=== PATIENT | male | born 1940 | race Caucasian/White ===

== ENCOUNTER 2021-12-07 17:01 | Emergency (ER) | payer OTHER ==
[~2021-12-07] VITALS: Ht 182.9 cm; Wt 93.4 kg
[~2021-12-07 17:01] MED LIST: AMLO-258 PO; BENA-8 PO; DOXA4TAB3 PO; ESOM20CA31 PO; FOLI1TAB15 PO; IRON1CAP32 PO; MAGN400T7 PO; VITAMIN B12 PO; VITAMIN D3 PO
[2021-12-07 17:02] VITALS: BP 151/75
[2021-12-07 17:56] LABS: HEMATOCRIT 25.9 % (42-54); LYMPHOCYTES % (AUTO) 71.6 % (21.0-51.0); MEAN CORPUSCULAR HEMOGLOBIN 27.2 pg (27.0-33.0); MEAN CORPUSCULAR HGB CONC 31.3 g/dL (32.0-36.0); MEAN CORPUSCULAR VOLUME 86.9 fL (79-99); MONOCYTES % (AUTO) 12.6 % (3.0-13.0); NEUTROPHILS % (AUTO) 15.8 % (40.0-77.0); PLATELET COUNT (AUTO) 14 K/uL (130-400); RED BLOOD CELL COUNT(AUTO) 2.98 MIL/uL (4.50-6.20); RED CELL DISTRIBUTION WIDTH 18.7 % (11.0-15.5); WHITE BLOOD COUNT (AUTO) 1.8 K/uL (4.8-10.8)
[2021-12-07 18:07] LABS: CREATININE 1.8 mg/dL (0.5-1.5); POTASSIUM 3.5 mmol/L (3.5-5.1)
[2021-12-07 18:14] LABS: BILIRUBIN,TOTAL 0.5 mg/dL (0.2-1.0); TOTAL PROTEIN, SERUM 7.3 g/dL (6.0-8.3)
[2021-12-07] MEDS ORDERED: ASPIRIN 325MG TAB PO ONE (18:30)
[2021-12-07] MEDS ORDERED: NITROGLYCERIN 1GM OINT 1 INCH/1GM TD ONE (18:30)
[2021-12-07 19:03] LABS: APPEARANCE,URINE Clear (CLEAR); BILIRUBIN,URINE Negative (NEGATIVE); COLOR,URINE Dark Yellow (YELLOW); GLUCOSE, URINE (UA) Negative (NEGATIVE); KETONES,URINE Trace mg/dL (NEGATIVE); LEUKOCYTE ESTERASE ,URINE Trace (NEGATIVE); NITRATE,URINE Negative (NEGATIVE); OCCULT BLOOD,URINE Negative (NEGATIVE); PROTEIN,URINE POS 1+ mg/dL (NEGATIVE)
[2021-12-07 19:26] LABS: BACTERIA,URINE Few /HPF (None Seen); RBC,URINE 0-1 /HPF (0-1); SQUAMOUS EPITHELIAL CELL,UR Few /HPF (0-2)
== END 2021-12-07 19:07 | disposition left against medical advice (07) ==
LOC: EDH 17:01
DX: R06.09 Other forms of dyspnea (principal); R77.8 Other specified abnormalities of plasma proteins; N28.9 Disorder of kidney and ureter, unspecified; I10 Essential (primary) hypertension; Z79.899 Other long term (current) drug therapy; Z98.890 Other specified postprocedural states
CPT/HCPCS: 36415; 71046; 80053; 81001; 83880; 84484; 85025; 93005

== ENCOUNTER 2023-11-04 21:31 | Observation (INO) | payer OTHER ==
[~2023-11-04] VITALS: Ht 175.3 cm; Wt 81.2 kg
[2023-11-04 22:13] LABS: BASOPHILS # (AUTO) 0.01 K/uL (0.00-0.20); BASOPHILS % (AUTO) 0.5 % (0.0-5.0); EOSINOPHILS # (AUTO) 0.03 K/uL (0.00-0.70); EOSINOPHILS % (AUTO) 1.6 % (0.0-8.0); IMMATURE GRANULOCYTE ABSOLUTE 0.02 K/uL (0-1); LYMPHOCYTES # (AUTO) 0.8 K/uL (1.0-4.8); LYMPHOCYTES % (AUTO) 41.9 % (21.0-51.0); MEAN CORPUSCULAR HEMOGLOBIN 30.5 pg (27.0-33.0); MEAN CORPUSCULAR HGB CONC 32.1 g/dL (32.0-36.0); MONOCYTES # (AUTO) 0.5 K/uL (0.1-1.0); MONOCYTES % (AUTO) 26.9 % (3.0-13.0); NEUTROPHILS # (AUTO) 0.5 K/uL (1.8-7.7); PLATELET COUNT (AUTO) 37 K/uL (130-400); RED CELL DISTRIBUTION WIDTH 20.1 % (11.0-15.5); WHITE BLOOD COUNT (AUTO) 1.9 K/uL (4.8-10.8)
[2023-11-04 22:27] LABS: INR 1.01 (0.85-1.15); PROTHROMBIN TIME 11.7 SEC (9.6-11.6)
[2023-11-04 22:28] LABS: PARTIAL THROMBOPLASTIN TIME 23.6 SEC (26.3-35.5)
[2023-11-04 22:29] LABS: ALBUMIN 2.4 g/dL (3.5-5.0); BILIRUBIN,TOTAL 0.7 mg/dL (0.2-1.0); CREATININE 1.6 mg/dL (0.5-1.5); POTASSIUM 3.1 mmol/L (3.5-5.1); TOTAL PROTEIN, SERUM 5.9 g/dL (6.0-8.3)
[2023-11-05] MEDS ORDERED: ACETAMINOPHEN 325 MG TAB PO PRN ×2 (01:30)
[2023-11-05] MEDS ORDERED: ONDANSETRON 4MG INJ IV PRN (01:30)
[2023-11-05] MEDS ORDERED: KCL 20 MEQ ERTAB PO PRN (02:00)
[2023-11-05 03:59] VITALS: BP 156/72; PULSE 85; RESP 18
[2023-11-05 06:49] LABS: EOSINOPHILS # (AUTO) 0.02 K/uL (0.00-0.70); EOSINOPHILS % (AUTO) 1.1 % (0.0-8.0); HEMATOCRIT 22.5 % (42-54); IMMATURE GRANULOCYTE ABSOLUTE 0.02 K/uL (0-1); LYMPHOCYTES # (AUTO) 0.6 K/uL (1.0-4.8); LYMPHOCYTES % (AUTO) 35.8 % (21.0-51.0); MEAN CORPUSCULAR HEMOGLOBIN 29.6 pg (27.0-33.0); MEAN CORPUSCULAR HGB CONC 32.4 g/dL (32.0-36.0); MEAN CORPUSCULAR VOLUME 91.1 fL (79-99); MONOCYTES # (AUTO) 0.5 K/uL (0.1-1.0); MONOCYTES % (AUTO) 29.1 % (3.0-13.0); NEUTROPHILS # (AUTO) 0.6 K/uL (1.8-7.7); NEUTROPHILS % (AUTO) 32.9 % (40.0-77.0); PLATELET COUNT (AUTO) 36 K/uL (130-400); RED BLOOD CELL COUNT(AUTO) 2.47 MIL/uL (4.50-6.20); RED CELL DISTRIBUTION WIDTH 20.1 % (11.0-15.5); WHITE BLOOD COUNT (AUTO) 1.8 K/uL (4.8-10.8)
[2023-11-05 07:08] LABS: ALBUMIN 2.2 g/dL (3.5-5.0); BILIRUBIN,TOTAL 1.2 mg/dL (0.2-1.0); CREATININE 1.5 mg/dL (0.5-1.5); MAGNESIUM 1.7 mg/dL (1.80-2.40); TOTAL PROTEIN, SERUM 5.6 g/dL (6.0-8.3)
[2023-11-05 07:27] LABS: POTASSIUM 2.8 mmol/L (3.5-5.1)
[2023-11-05] MEDS: POTASSIUM CHLORIDE 20MEQ/100ML 100 ML IV PRN (08:36)
[2023-11-05] MEDS: FAMOTIDINE 20MG VIAL IV SCH (08:36)
[2023-11-05] MEDS: MAGNESIUM 2GM PREMIX 50ML 50 ML IV PRN (09:55)
[2023-11-05] MEDS ORDERED: IPRA3AMP24 IH (11:17)
[2023-11-05] MEDS ORDERED: POLY17PO52 PO (11:17)
[2023-11-05] MEDS ORDERED: MELA3TAB41 PO (11:17)
[2023-11-05] MEDS ORDERED: LOPE2CAP PO (11:17)
[2023-11-05] MEDS ORDERED: TRAZ-185 PO (11:17)
[2023-11-05] MEDS ORDERED: AMLO-258 PO (11:17)
[2023-11-05] MEDS ORDERED: ZINC28.45 TP (11:17)
[2023-11-05] MEDS ORDERED: COLL30OI TP (11:17)
[2023-11-05] MEDS ORDERED: ASPI-891 PO (11:17)
[2023-11-05] MEDS ORDERED: HYDR100T27 PO (11:17)
[2023-11-05] MEDS ORDERED: FERR-72 PO (11:17)
[2023-11-05] MEDS ORDERED: FINA5TAB41 PO (11:17)
[2023-11-05] MEDS ORDERED: POTA-79 PO (11:17)
[2023-11-05] MEDS ORDERED: HYDR-4030 PO (11:17)
[2023-11-05] MEDS ORDERED: INSU200I SQ (11:17)
[2023-11-05] MEDS ORDERED: MAG-156 PO (11:17)
[2023-11-05] MEDS ORDERED: FOLI0.8T2 PO (11:17)
[2023-11-05] MEDS ORDERED: NON-FORMULARY MEDICATION 1 EACH (Hydralazine HCl 100 MG) PO SCH (12:30)
[2023-11-05] MEDS ORDERED: LOPERAMIDE HCL 2 MG CAP PO PRN (12:30)
[2023-11-05] MEDS ORDERED: POLYETHYLENE GLYCOL 3350 17 GM POWD.PACK PO PRN (12:30)
[2023-11-05] MEDS ORDERED: MAG/ALUM/SIMETH 30 ML UDCUP PO PRN (12:30)
[2023-11-05] MEDS: HYDRALAZINE 25MG TABLET PO SCH (12:59)
[2023-11-05] MEDS ORDERED: INSULIN LISPRO 3 UNIT SQ SCH (17:00)
[2023-11-05] MEDS: INSULIN LISPRO 100 UNIT/ML 3ML SQ SCH (18:42)
[2023-11-05 19:17] LABS: MAGNESIUM 2.1 mg/dL (1.80-2.40); POTASSIUM 3.2 mmol/L (3.5-5.1)
[2023-11-05 19:18] LABS: HEMATOCRIT 21.6 % (42-54)
[2023-11-05 19:30] VITALS: BP 159/72; PULSE 85; RESP 20
[2023-11-05 20:35] VITALS: O2SAT 96
[2023-11-05] MEDS: FERROUS SULFATE 325 MG TABLET.DR PO SCH (20:58)
[2023-11-05] MEDS: HYDROXYZINE 25 MG TABLET PO SCH (20:58)
[2023-11-05] MEDS: TRAZODONE HCL 50 MG TAB PO SCH (20:58)
[2023-11-05] MEDS: ZINC OXIDE OINT 30GM TUBE TP SCH (21:00)
[2023-11-05] MEDS ORDERED: HYDROXYZINE PAMOATE 25 MG PO SCH (21:00)
[2023-11-05] MEDS ORDERED: NON-FORMULARY MEDICATION 1 EACH (Ferrous Sulfate 325 MG) PO SCH (21:00)
[2023-11-05] MEDS: MELATONIN 9 MG PO SCH (21:00)
[2023-11-05] MEDS: POTASSIUM CHLORIDE 10% ELIXIR 20 MEQ/15 ML UDCUP PO PRN (22:35)
[2023-11-05 23:00] VITALS: BP 137/56; PULSE 57; RESP 20
[2023-11-06 05:00] VITALS: BP 163/83; PULSE 82; RESP 18
[2023-11-06 05:57] LABS: BASOPHILS # (AUTO) 0.01 K/uL (0.00-0.20); BASOPHILS % (AUTO) 0.5 % (0.0-5.0); EOSINOPHILS # (AUTO) 0.02 K/uL (0.00-0.70); EOSINOPHILS % (AUTO) 0.9 % (0.0-8.0); HEMATOCRIT 23.4 % (42-54); IMMATURE GRANULOCYTE ABSOLUTE 0.02 K/uL (0-1); LYMPHOCYTES # (AUTO) 0.8 K/uL (1.0-4.8); LYMPHOCYTES % (AUTO) 37.8 % (21.0-51.0); MEAN CORPUSCULAR HEMOGLOBIN 29.7 pg (27.0-33.0); MEAN CORPUSCULAR HGB CONC 32.5 g/dL (32.0-36.0); MEAN CORPUSCULAR VOLUME 91.4 fL (79-99); MONOCYTES # (AUTO) 0.8 K/uL (0.1-1.0); MONOCYTES % (AUTO) 36.5 % (3.0-13.0); NEUTROPHILS # (AUTO) 0.5 K/uL (1.8-7.7); NEUTROPHILS % (AUTO) 23.4 % (40.0-77.0); PLATELET COUNT (AUTO) 47 K/uL (130-400); RED BLOOD CELL COUNT(AUTO) 2.56 MIL/uL (4.50-6.20); RED CELL DISTRIBUTION WIDTH 21.1 % (11.0-15.5); WHITE BLOOD COUNT (AUTO) 2.2 K/uL (4.8-10.8)
[2023-11-06 06:04] LABS: RETICULOCYTE % (AUTO) 2.16 % (0.42-2.23)
[2023-11-06 06:49] LABS: ALBUMIN 2.3 g/dL (3.5-5.0); BILIRUBIN,TOTAL 1.2 mg/dL (0.2-1.0); CREATININE 1.4 mg/dL (0.5-1.5); MAGNESIUM 1.8 mg/dL (1.80-2.40); POTASSIUM 3.3 mmol/L (3.5-5.1); TOTAL PROTEIN, SERUM 5.9 g/dL (6.0-8.3)
[2023-11-06 07:19] LABS: % IRON SATURATION 23.4 % (30-44)
[2023-11-06 07:34] VITALS: O2SAT 96
[2023-11-06] MEDS: COLLAGENASE CLOSTRIDIUM HIST TP SCH (07:59)
[2023-11-06 08:00] VITALS: BP 154/77; PULSE 90; RESP 18
[2023-11-06 08:25] LABS: BASOPHILS % (MANUAL) 1 % (0-2); EOSINOPHILS % (MANUAL) 2 % (1-6); LYMPHOCYTES % (MANUAL) 43 % (22-44); MONOCYTES % (MANUAL) 26 % (2-9); SEGMENTED NEUTROPHILS % 28 % (40-70); TOTAL CELLS COUNTED 100
[2023-11-06 08:27] LABS: MAN.DIFF COMMENT-IMPRESSION MANUAL DIFFERENTIAL; PLATELET MORPHOLOGY COMMENT MARKED DECREASE
[2023-11-06] MEDS: Vitamin B Complex/Vit C/Folic Acid PO SCH (08:50)
[2023-11-06] MEDS: FINASTERIDE 5 MG TABLET PO SCH (08:50)
[2023-11-06] MEDS: AMLODIPINE 5 MG TAB PO SCH (08:51)
[2023-11-06] MEDS: KCL 20 MEQ ERTAB PO SCH (08:51)
[2023-11-06] MEDS ORDERED: NON-FORMULARY MEDICATION 1 EACH (Folic Acid/Vitamin B Comp W-C (Nephro-Vite Tablet) 0.8 MG PO SCH (09:00)
[2023-11-06] MEDS ORDERED: NON-FORMULARY MEDICATION 1 EACH (Potassium Chloride 20 MEQ) PO SCH (09:00)
[2023-11-06 12:00] VITALS: BP 140/74; PULSE 82; RESP 18
== END 2023-11-06 13:40 ==
LOC: EDH 21:31 → INTOOBSV 11-05 01:26 → EDHIP 11-05 01:26 → 3DH 11-05 19:10
PROVIDERS: ADMIT Hospitalist; ATTEND Hospitalist
DX: D46.9 Myelodysplastic syndrome, unspecified (principal); D61.818 Other pancytopenia; E87.6 Hypokalemia; E83.42 Hypomagnesemia; E46 Unspecified protein-calorie malnutrition; R53.1 Weakness; I10 Essential (primary) hypertension; N40.0 Benign prostatic hyperplasia without lower urinary tract symptoms; Z90.5 Acquired absence of kidney; Z68.26 Body mass index [BMI] 26.0-26.9, adult; Z79.899 Other long term (current) drug therapy
CPT/HCPCS: 36430; 99285; 80053 ×3; 85025 ×3; 85610; 85730; 86850; 86900; 86901; 86923; 36415 ×3; 96376; 96372; 96365; 96375; 83735 ×3; 84132; 85014; 85018; 82948 ×5; 82728; 82306; 82607; P9016; J3475; J3490 ×3; J3480 ×2; A4600; G0378 ×5